=== PATIENT | female | born 2000 | race Hispanic/Latino ===

== ENCOUNTER 2021-01-26 08:55 | Day surgery (SDC) | payer OTHER ==
[2021-01-26] MEDS ORDERED: hydrALAZINE 20 MG/ML VIAL SLOW IVP PRN (10:04)
[2021-01-26 10:23] VITALS: BMI 47.7
[2021-01-26 10:41] LABS: Amnisure Test No Membranes Rupture (No Rupture)
== END 2021-01-26 10:55 | disposition home health service (06) ==
LOC: CSHLD/OP 08:55
PROVIDERS: ATTEND Obstetrics & Gynecology
DX: O99.891 Other specified diseases and conditions complicating pregnancy (principal); N89.8 Other specified noninflammatory disorders of vagina; Z3A.38 38 weeks gestation of pregnancy; Z87.440 Personal history of urinary (tract) infections
CPT/HCPCS: 76815; 84112; 99284

== ENCOUNTER 2021-02-01 10:00 | Outpatient (CLI) | payer OTHER ==
[2021-02-02 04:50] LABS: SARS-CoV-2 PCR by NAA Not Detected (NotDetected)
== END 2021-02-01 10:01 | disposition home or self-care (01) ==
LOC: CSHLAB 10:00
PROVIDERS: ATTEND Obstetrics & Gynecology
DX: Z20.822 Contact with and (suspected) exposure to COVID-19 (principal)
CPT/HCPCS: 87635; U0003; U0005

== ENCOUNTER 2021-02-02 19:00 | Inpatient (IN) | payer MEDICAID, OTHER ==
[2021-02-02] MEDS ORDERED: Docusate 100 MG CAP PO PRN (19:50)
[2021-02-02] MEDS ORDERED: Misoprostol 200 MCG TAB PR PRN (19:50)
[2021-02-02] MEDS ORDERED: NS / Oxytocin 40 units/1000ml 1,000 ML IV PRN (19:50)
[2021-02-02] MEDS ORDERED: Ibuprofen 800 MG TAB PO PRN (19:50)
[2021-02-02] MEDS ORDERED: Promethazine HCl 25 MG/ML VIAL IM PRN (19:50)
[2021-02-02] MEDS ORDERED: hydrALAZINE 20 MG/ML VIAL SLOW IVP PRN (19:50)
[2021-02-02] MEDS ORDERED: Ondansetron PF 4 MG/2 ML Vial IVP PRN (19:50)
[2021-02-02] MEDS ORDERED: HYDROcodone/Acetaminophen 5/325 mg Tablet PO PRN ×2 (19:50)
[2021-02-02] MEDS ORDERED: Acetaminophen 500 MG TAB PO PRN (19:50)
[2021-02-02] MEDS ORDERED: Butorphanol Tartrate 1 MG/ML VIAL SLOW IVP PRN (19:50)
[2021-02-02] MEDS ORDERED: Lidocaine 1% (PF) 30 ML VIAL SC PRN (19:50)
[2021-02-02] MEDS ORDERED: Diphenoxylate HCl/Atropine Tablet PO PRN ×2 (19:50)
[2021-02-02] MEDS ORDERED: Zolpidem Tartrate 5 MG TAB PO PRN (19:50)
[2021-02-02 20:35] LABS: Hemoglobin 11.8 g/dL (12.0-15.5); Mean Corpuscular HGB CONC 33.2 g/dL (32.0-36.0); Mean Corpuscular Hemoglobin 28.6 pg (27.0-33.0); Mean Corpuscular Volume 86.2 fl (81.6-98.3); Mean Platelet Volume 11.1 fl (7.4-10.4); Platelet Count 243 10x3/uL (150-450); RBC Distribution Width 13.4 % (11.5-14.5); Red Blood Cell (RBC) Count 4.12 10x6/uL (3.90-5.03); White Blood Cell (WBC) Count 11.5 10x3/uL (3.5-10.5)
[2021-02-02] MEDS: Misoprostol 100 MCG TAB VAG SCH (20:53)
[2021-02-02] MEDS: Lactated Ringer's 1,000 ML IV SCH (21:00)
[2021-02-02 21:48] LABS: Hep B Surf Ag Non-Reactive S/CO (NonReactive)
[2021-02-02 21:49] LABS: Syphilis Antibody Nonreactive (Nonreactive); Syphilis Antibody Index 0.03 S/CO (<1.00 Non-Reactive)
[2021-02-02 21:54] LABS: HBSAg Index 0.16 S/CO (0-0.99)
[2021-02-02 22:32] VITALS: BMI 52.0
[2021-02-03] MEDS: Misoprostol 100 MCG TAB VAG SCH (01:14)
[2021-02-03] MEDS: Lactated Ringer's 1,000 ML IV SCH ×3 (02:58→16:14)
[2021-02-03] MEDS ORDERED: NS w/ Oxytocin 30 units 500 ML ONE ×2 (05:39→19:41)
[2021-02-03] MEDS ORDERED: Fentanyl 4 mcg/Bup 0.1% Cadd 100 ML ONE ×2 (10:23→16:19)
[2021-02-03] MEDS: Fentanyl 4 mcg/Bupivacaine 0.1% Cassette 100 ML EPIDURAL SCH ×2 (10:55→16:20)
[2021-02-03] MEDS ORDERED: Promethazine HCl 25 MG/ML VIAL IM PRN (11:06)
[2021-02-03] MEDS ORDERED: Eucerin (Mineral Oil/Petrolatum,White) 30 gm Jar TOP PRN (11:06)
[2021-02-03] MEDS ORDERED: Ondansetron PF 4 MG/2 ML Vial IVP PRN ×2 (11:06→20:00)
[2021-02-03] MEDS ORDERED: Acetaminophen 325 MG TAB PO PRN (11:06)
[2021-02-03] MEDS ORDERED: ePHEDrine 50 MG/ML VIAL SLOW IVP PRN (11:06)
[2021-02-03] MEDS ORDERED: Naloxone HCl 0.4 mg/ml Vial IVP PRN ×2 (11:06)
[2021-02-03] MEDS ORDERED: diphenhydrAMINE 50 MG/ML VIAL IVP PRN (11:06)
[2021-02-03] MEDS ORDERED: Lactated Ringer's 500 ML IV PRN (11:06)
[2021-02-03] MEDS ORDERED: Communication Order-Pharmacy FS SCH (11:15)
[2021-02-03] MEDS ORDERED: Fentanyl 100 MCG/2 ML VIAL ONE (12:05)
[2021-02-03] MEDS ORDERED: Methylergonovine 0.2 MG/ML VIAL ONE (15:58)
[2021-02-03] MEDS ORDERED: Carboprost 250 MCG/ML AMP ONE (15:58)
[2021-02-03] MEDS ORDERED: Zolpidem Tartrate 5 MG TAB PO PRN (20:00)
[2021-02-03] MEDS ORDERED: NS / Oxytocin 40 units/1000ml 1,000 ML IV SCH (20:00)
[2021-02-03] MEDS ORDERED: hydrALAZINE 20 MG/ML VIAL SLOW IVP PRN (20:00)
[2021-02-03] MEDS ORDERED: Milk Of Magnesia 30 ML UDCUP PO PRN (20:00)
[2021-02-03] MEDS ORDERED: Bisacodyl 10 MG SUPP PR PRN (20:00)
[2021-02-03] MEDS ORDERED: Preparation H Ointment 28 GM TUBE PR PRN (20:00)
[2021-02-03] MEDS ORDERED: Misoprostol 200 MCG TAB VAG PRN (20:00)
[2021-02-03] MEDS ORDERED: Lanolin Ointment 7 GM TUBE TOP PRN (20:00)
[2021-02-03] MEDS ORDERED: diphenhydrAMINE 25 MG CAP PO PRN (20:00)
[2021-02-03] MEDS ORDERED: HYDROcodone/Acetaminophen 5/325 mg Tablet PO PRN ×2 (20:00)
[2021-02-03] MEDS ORDERED: Witch Hazel-Glycerin 1 EACH JAR TOP PRN (20:03)
[2021-02-03] MEDS: Docusate Calcium (SURFAK) 240 MG CAP PO SCH (21:00)
[2021-02-03] MEDS: Ibuprofen 800 MG TAB PO SCH (21:43)
[2021-02-04] MEDS: Ibuprofen 800 MG TAB PO SCH ×2 (06:55→14:32)
[2021-02-04] MEDS ORDERED: Adacel (T-DAP) 0.5 ML SYRINGE IM ONE (09:00)
[2021-02-04] MEDS: Lactated Ringer's 1,000 ML IV SCH (09:03)
[2021-02-04] MEDS: Misoprostol 100 MCG TAB VAG SCH (09:04)
[2021-02-04] MEDS: Docusate Calcium (SURFAK) 240 MG CAP PO SCH (09:06)
[2021-02-04] MEDS: Prenatal Vitamin 1 TAB PO SCH (09:06)
[2021-02-04 10:01] LABS: Hemoglobin 9.6 g/dL (12.0-15.5)
[2021-02-04] MEDS ORDERED: Benzocaine-Menthol 82.5 ML CAN TOP PRN (12:29)
[2021-02-04] MEDS: Ferrous Sulfate 325 MG TAB PO SCH ×3 (13:09→15:31)
[2021-02-04] MEDS ORDERED: Bupivacaine 0.25% HCL 30 ML VIAL ONE (19:34)
[2021-02-05] MEDS: Ibuprofen 800 MG TAB PO SCH ×2 (06:34→06:35)
[2021-02-05] MEDS: Docusate Calcium (SURFAK) 240 MG CAP PO SCH ×2 (06:34→10:49)
[2021-02-05 09:59] VITALS: BP 91/48; TEMP 97.8
[2021-02-05] MEDS: Ferrous Sulfate 325 MG TAB PO SCH (10:49)
[2021-02-05] MEDS: Prenatal Vitamin 1 TAB PO SCH (10:49)
== END 2021-02-05 13:45 | disposition home or self-care (01) | DRG 768 ==
LOC: CSHLD/OP 19:00 → CSHLD 19:19 → CSHPP 02-03 22:51
PROVIDERS: ADMIT Obstetrics & Gynecology; ATTEND Obstetrics & Gynecology
PROC: 10E0XZZ Delivery of Products of Conception, External Approach (ICD-10-PCS; principal; 2021-02-02)
PROC: 0W8NXZZ Division of Female Perineum, External Approach (ICD-10-PCS; 2021-02-02)
PROC: 0DQR0ZZ Repair Anal Sphincter, Open Approach (ICD-10-PCS; 2021-02-02)
DX: O36.63X0 Maternal care for excessive fetal growth, third trimester, not applicable or unspecified (principal); Z37.0 Single live birth; O70.20 Third degree perineal laceration during delivery, unspecified; Z3A.39 39 weeks gestation of pregnancy
CPT/HCPCS: 36415; 51702; 85014; 85018; 85027; 86780; 86850; 86900; 86901; 87340; J0595; J2590; S0020

== ENCOUNTER 2022-11-14 10:15 | Inpatient (IN) | payer OTHER ==
[~2022-11-14 10:15] MED LIST: Bupivacaine/Epinephrine 0.25% 30 ML VIAL ONE
[2022-11-14] MEDS ORDERED: Carboprost 250 MCG/ML AMP IM PRN (10:25)
[2022-11-14] MEDS ORDERED: Misoprostol 200 MCG TAB PR PRN (10:25)
[2022-11-14] MEDS ORDERED: Ibuprofen 800 MG TAB PO PRN (10:25)
[2022-11-14] MEDS ORDERED: Diphenoxylate HCl/Atropine Tablet PO PRN ×2 (10:25)
[2022-11-14] MEDS ORDERED: Lidocaine 1% (PF) 30 ML VIAL SC PRN (10:25)
[2022-11-14] MEDS ORDERED: hydrALAZINE 20 MG/ML VIAL SLOW IVP PRN (10:25)
[2022-11-14] MEDS ORDERED: Butorphanol Tartrate 1 MG/ML VIAL SLOW IVP PRN (10:25)
[2022-11-14] MEDS ORDERED: Docusate 100 MG CAP PO PRN (10:25)
[2022-11-14] MEDS ORDERED: Acetaminophen 500 MG TAB PO PRN (10:25)
[2022-11-14] MEDS ORDERED: HYDROcodone/Acetaminophen 5/325 mg Tablet PO PRN ×2 (10:25)
[2022-11-14] MEDS ORDERED: Promethazine HCl 25 MG/ML VIAL IM PRN (10:25)
[2022-11-14] MEDS ORDERED: Ondansetron PF 4 MG/2 ML Vial IVP PRN (10:25)
[2022-11-14] MEDS ORDERED: NS w/ Oxytocin 30 units 500 ML IV SCH ×2 (10:30)
[2022-11-14 11:38] LABS: Hemoglobin 10.8 g/dL (12.0-15.5); Mean Corpuscular HGB CONC 32.9 g/dL (32.0-36.0); Mean Corpuscular Hemoglobin 27.6 pg (27.0-33.0); Mean Corpuscular Volume 83.7 fl (81.6-98.3); Mean Platelet Volume 11.8 fl (7.4-10.4); Platelet Count 210 10x3/uL (150-450); RBC Distribution Width 13.9 % (11.5-14.5); Red Blood Cell (RBC) Count 3.92 10x6/uL (3.90-5.03); White Blood Cell (WBC) Count 8.2 10x3/uL (3.5-10.5)
[2022-11-14 11:43] VITALS: BMI 54.8
[2022-11-14 12:14] LABS: HBSAg Index 0.19 S/CO (0-0.99); HIV (1/2) Antibody/Antigen Non-Reactive (NonReactive); HIV 1/2 INDEX 0.14 S/CO (<1.00); Hep B Surf Ag Non-Reactive S/CO (NonReactive)
[2022-11-14 12:15] LABS: Syphilis Antibody Nonreactive (Nonreactive); Syphilis Antibody Index 0.03 S/CO (<1.00 Non-Reactive)
[2022-11-14 12:38] LABS: ALT (SGPT) 7 U/L (8-55); AST (SGOT) 12 U/L (5-34); Albumin 3.3 g/dL (3.5-5.0); Alkaline Phosphatase 117 U/L (40-110); Anion Gap 13 mmol/L (10-20); BUN (Urea Nitrogen) 9 mg/dL (7.0-18.7); Bilirubin, Total 0.2 mg/dL (0.2-1.2); Calc. Creatinine Clearance 332 mL/min (70-130); Calcium 8.7 mg/dL (7.8-10.44); Carbon Dioxide 18 mmol/L (22-29); Chloride 110 mmol/L (98-107); Estimated GFR 126; Globulin 2.5 g/dL (2.4-3.5); Glucose 84 mg/dL (70-105); Potassium 4.2 mmol/L (3.5-5.1); Protein, Total 5.8 g/dL (6.0-8.3); Sodium 137 mmol/L (136-145)
[2022-11-14] MEDS ORDERED: Fentanyl 2 mcg/Bup 0.1% Cadd 100 ML ONE ×2 (12:51→23:31)
[2022-11-14] MEDS ORDERED: Fentanyl 100 MCG/2 ML VIAL ONE (17:52)
[2022-11-15] MEDS ORDERED: Fentanyl 2 mcg/Bup 0.1% Cadd 100 ML ONE (04:19)
[2022-11-15] MEDS ORDERED: Dexmedetomidine 200 MCG/2 ML VIAL ONE (07:53)
[2022-11-15] MEDS: Lactated Ringer's 1,000 ML IV SCH (19:07)
[2022-11-15] MEDS ORDERED: Witch Hazel-Glycerin 1 EACH JAR TOP PRN (19:49)
[2022-11-15] MEDS ORDERED: HYDROcodone/Acetaminophen 5/325 mg Tablet PO PRN (19:49)
[2022-11-15] MEDS ORDERED: Benzocaine-Menthol 82.5 ML CAN TOP PRN (19:50)
[2022-11-15] MEDS: Ibuprofen 800 MG TAB PO SCH (21:33)
[2022-11-15] MEDS: Docusate 100 MG CAP PO SCH (21:33)
[2022-11-16] MEDS: Lactated Ringer's 1,000 ML IV SCH (00:05)
[2022-11-16] MEDS: Ibuprofen 800 MG TAB PO SCH ×3 (05:46→21:17)
[2022-11-16] MEDS: Docusate 100 MG CAP PO SCH ×2 (08:36→21:17)
[2022-11-16] MEDS: HYDROcodone/Acetaminophen 5/325 mg Tablet PO PRN (22:27)
[2022-11-17] MEDS: Lactated Ringer's 1,000 ML IV SCH ×3 (02:40→08:30)
[2022-11-17] MEDS: Ibuprofen 800 MG TAB PO SCH (05:47)
[2022-11-17 08:02] VITALS: BP 145/79; TEMP 97.5
[2022-11-17] MEDS: Docusate 100 MG CAP PO SCH (09:12)
[2022-11-17] MEDS: HYDROcodone/Acetaminophen 5/325 mg Tablet PO PRN (09:15)
== END 2022-11-17 12:50 | disposition home or self-care (01) | DRG 807 ==
LOC: CSHLD 10:15 → CSHPP 11-15 18:30
PROVIDERS: ADMIT Obstetrics & Gynecology; ATTEND Obstetrics & Gynecology
PROC: 10907ZC Drainage of Amniotic Fluid, Therapeutic from Products of Conception, Via Natural or Artificial Opening (ICD-10-PCS; 2022-11-14)
PROC: 3E033VJ Introduction of Other Hormone into Peripheral Vein, Percutaneous Approach (ICD-10-PCS; 2022-11-14)
PROC: 10E0XZZ Delivery of Products of Conception, External Approach (ICD-10-PCS; principal; 2022-11-15)
DX: O13.4 Gestational [pregnancy-induced] hypertension without significant proteinuria, complicating childbirth (principal); Z37.0 Single live birth; Z3A.37 37 weeks gestation of pregnancy; E66.9 Obesity, unspecified; O99.214 Obesity complicating childbirth; D64.9 Anemia, unspecified; O99.02 Anemia complicating childbirth; O36.63X0 Maternal care for excessive fetal growth, third trimester, not applicable or unspecified; Z88.0 Allergy status to penicillin; Z79.82 Long term (current) use of aspirin
CPT/HCPCS: 51702; 80053; 84550; 85027; 86780; 86850; 86900; 86901; 87340; 87389

== ENCOUNTER 2024-09-15 10:44 | Outpatient (CLI) | payer BC | END 2024-09-15 10:45 | disposition home or self-care (01) | LOC: CSHDTY/OP 10:44 | PROVIDERS: ATTEND Specialist | DX: E66.01 Morbid (severe) obesity due to excess calories (principal) | CPT/HCPCS: 97802 ==